=== PATIENT | male | born 1955 | race Caucasian/White ===

== ENCOUNTER 2022-09-10 09:47 | Inpatient (IN) ==
[2022-09-10] MEDS ORDERED: KETOROLAC TROMETHAMINE 15 MG/ML VIAL IV ONE (10:41)
--- NOTE | 2022-09-10 10:41 | Emergency Department Note ---
Impression & Plan Persistent atrial fibrillation, HTN (hypertension), Internal carotid artery dissection, Headache ED Provider Note NAME: DIONICIO DGUGAN AGE: 67 SEX: M : 1955 ARRIVES VIA: Walk-In INFORMANT: Patient ED PROVIDER(S): Donald Fuentes DO CHIEF COMPLAINT: headache HPI: Patient is a 67-year-old male who presents ER for headache. He notes that he gets a headache in the back of his neck which has been coming and going since this past . He denies any weakness or numbness in the arms or legs. Pain is a 1 out of 10. He does have some pain around the right TMJ when the headache occurs. No other jaw or neck pain. No chest pain or shortness of breath. No belly pain, nausea, vomiting or diarrhea. No dysuria, urgency or frequency. No other exacerbating or remitting factors. He has been taking his blood pressure medications. He has been checking his blood pressure at home and it has been elevated and consequently he came in today. PAST MEDICAL HISTORY:See Below PAST SURGICAL HISTORY:See Below FAMILY HISTORY:See Below SOCIAL HISTORY:See Below HOME MEDICATIONS:See Below ALLERGIES:See Below VITALS:See Below PHYSICAL EXAMINATION: GENERAL: Sitting up in bed, alert, well appearing, well nourished, no distress, non-toxic EYE EXAM: normal conjunctiva. PERRL and EOM's intact. OROPHARYNX: no exudate, no erythema, lips, buccal mucosa, and tongue normal and mucous membranes are moist LUNGS: Clear to auscultation. Normal chest wall mechanics HEART: no murmurs, S1 normal and S2 normal ABDOMEN: abdomen soft, non-tender, normo-active bowel sounds, no masses, no rebound or guarding. BACK: Back is symmetrical on inspection and there is no deformity, no midline tenderness, no CVA tenderness. SKIN: no rashes and no bruising UPPER EXTREMITIES: upper extremities are grossly normal. LOWER EXTREMITIES: No pitting edema. NEURO EXAM: Normal sensorium, cranial nerves II-XII intact, normal speech, no weakness of arms, no weakness of legs. No drift. Finger to nose intact. Gross s ensation intact. MEDICAL DECISION MAKING: Patient is a 67-year-old male who presents ER above-stated complaint. IV was established blood work was obtained. He is complaining of headache and neck pain. He does see a chiropractor as an outpatient. IV was established blood work was obtained. Does have a history of A. fib on Eliquis. Labs show no significant leukocytosis or anemia. BMP was unremarkable. T bili slightly up at 1.1. LFTs and lipase was normal. Troponin was negative. CT of the head was initially obtained. After protracted conversation he notes he does follow with a chiropractor and angios of the head and neck were obtained and shows a left in ternal carotid dissection with near occlusion. Following this I discussed with our neurologist who recommended discussing with [facility] neurosurgery. I contacted [facility]. They transferred me to neurology and the images were in their system as I had them transferred after talking with her patrol sergeant sheriff's office. They reviewed the images and I discussed the exam with them. Patient has been taking his Eliquis. They then discussed the case with their interventionalist on-call. Patient per Dr. Pineda is not a candidate for any intervention. They will accept him in transfer as they will monitor him over the next 24 to 48 hours. If nothing changes they will let him go home. They re commended switching him from Eliquis to heparin in case he needs a procedure. They would prefer the pressures to remain from 1 40-1 60s. If he was significantly higher lower this would need to be augmented as he is at risk of stroking out if it goes lower and making dissection worse if he goes much higher. They expect the bed to be ready in about 24 hours. Based on this I discussed the case with Tete from [facility] service. Patient was updated bedside. They are agreeable to transport to [facility]. They discussed with golf instructor and I discussed the case with Dr. Mao from the ICU in the ER. Patient remained stable. Blood pressures did wax and wane between 150s to mid 170s. He has no deficit. I did place him on a heparin drip as previously requested by neurology at [facility]. Triage Nursing notes reviewed. Limited review of prior medical records performed Vital Signs: reviewed and remarkable for no significant abnormalities Differential diagnosis: Differential Diagnosis includes but is not limited to headache, tension headache, cluster headache, migraine, subarachnoid hemorrhage, meningitis, mass, central venous thrombus, concussion, trauma and epidural/subdural hemorrhage. ER treatment provided: See below Diagnostics interpreted by me include EKG and cardiac monitoring as listed below: -Cardiac Monitoring: An order was placed for continuous cardiac monitoring. The monitor shows a rate of 70 with sinus rhythm. -ECG: A. fib rate of 72 Normal axis No PVCs QTC 446 -Laboratory studies:Interpreted by me as stated above in MDM and shown below. Imaging studies: Xrays: As interpreted by me:none CTs show: CTs of the head and neck show a left internal carotid dissection with near complete occlusion at the base of the skull Consultation(s): As described above discussed with Dr. Butts from our neurology service here who recommended discussing with [facility]. Discussed with Dr. Pineda who reviewed the images and discussed with her interventionalists and agreed to accept the patient under Dr. Stout service at [facility]. Expect an days delay for a bed. Discussed with Tete [facility] here who accepted the patient and admission as well as Dr. Mills from our ICU who is consulting on the patient Procedures:none Critical Care: I have personally spent 31 minutes of critical care time in the direct management of this patient. This includes bedside care, interpretation of diagnostic studies, and testing, discussion with consultants, patient, and family members, and other required patient management activities. This 31 minutes is in excess of all separately billable procedures. Past Med/Surg History Medical History HTN (hypertension) Persistent atrial fibrillation Family History Other Diabetes Stroke Social History Smoking Status: Never smoker Hx Alcohol Use: Yes Alcohol type: beer, wine and hard liquor Alcohol type Comment: 2 drinks nightly Hx Substance Use: No Feels Safe at Home: Yes Allergies Allergies Allergy/AdvReac Type Severity Reaction Status Date / Time No Known Allergies Allergy Verified 09/10/22 15:17 Home Meds Home Medications Medication Instructions Recorded Confirmed apixaban 5 mg tablet (Eliquis) 5 mg PO BID 09/10/22 09/10/22 hydrochlorothiazide 12.5 mg capsule 12.5 mg PO QAM 09/10/22 09/10/22 lisinopril 40 mg tablet 40 mg PO QAM 09/10/22 09/10/22 metoprolol succinate 50 mg 50 mg PO QAM 09/10/22 09/10/22 tablet,extended release 24 hr Results & Data (ED) Vital Signs Vital Signs - 24 hr 09/10/22 09:56 09/10/22 10:12 09/10/22 10:12 Temperature 37 C Temperature Source Temporal Artery Scan Pulse Rate 72 Pulse Rate [Apical] Pulse Rate from SpO2 Sensor Respiratory Rate 20 Respiratory Effort / Characteristics Non-Labored Spontaneous Respiratory Depth Normal Respiratory Pattern Regular Blood Pressure 190/135 H Blood Pressure [Right Arm] Blood Pressure Mean 153 Blood Pressure Mean [Right Arm] Pulse Oximetry 99 Oxygen Delivery Method Room Air Room Air Room Air Sepsis Recent Fever Within 48 Hours No Sepsis New/Unexplained Change in Mental Status No Sepsis Action Taken by Nursing No Action Required 09/10/22 10:22 09/10/22 10:30 09/10/22 10:40 Temperature Temperature Source Pulse Rate 68 80 68 Pulse Rate [Apical] Pulse Rate from SpO2 Sensor 68 86 71 Respiratory Rate 24 16 21 Respiratory Effort / Characteristics Respiratory Depth Respiratory Pattern Blood Pressure Blood Pressure [Right Arm] Blood Pressure Mean Blood Pressure Mean [Right Arm] Pulse Oximetry 100 96 96 Oxygen Delivery Method Room Air Room Air Room Air Sepsis Recent Fever Within 48 Hours Sepsis New/Unexplained Change in Mental Status Sepsis Action Taken by Nursing 09/10/22 10:50 09/10/22 11:05 09/10/22 11:10 Temperature Temperature Source Pulse Rate 76 67 69 Pulse Rate [Apical] Pulse Rate from SpO2 Sensor 72 73 Respiratory Rate 18 14 Respiratory Effort / Characteristics Respiratory Depth Respiratory Pattern Blood Pressure Blood Pressure [Right Arm] Blood Pressure Mean Blood Pressure Mean [Right Arm] Pulse Oximetry 98 98 Oxygen Delivery Method Room Air Room Air Room Air Sepsis Recent Fever Within 48 Hours Sepsis New/Unexplained Change in Mental Status Sepsis Action Taken by Nursing 09/10/22 11:19 09/10/22 11:19 09/10/22 11:20 Temperature Temperature Source Pulse Rate 61 70 Pulse Rate [Apical] Pulse Rate from SpO2 Sensor 63 75 Respiratory Rate 18 17 Respiratory Effort / Characteristics Respiratory Depth Respiratory Pattern Blood Pressure 164/103 H Blood Pressure [Right Arm] Blood Pressure Mean 123 Blood Pressure Mean [Right Arm] Pulse Oximetry 95 98 Oxygen Delivery Method Room Air Room Air Room Air Sepsis Recent Fever Within 48 Hours Sepsis New/Unexplained Change in Mental Status Sepsis Action Taken by Nursing 09/10/22 11:30 09/10/22 11:40 09/10/22 11:50 Temperature Temperature Source Pulse Rate 74 68 65 Pulse Rate [Apical] Pulse Rate from SpO2 Sensor 66 74 Respiratory Rate 15 17 17 Respiratory Effort / Characteristics Respiratory Depth Respiratory Pattern Blood Pressure Blood Pressure [Right Arm] Blood Pressure Mean Blood Pressure Mean [Right Arm] Pulse Oximetry 98 97 Oxygen Delivery Method Room Air Room Air Room Air Sepsis Recent Fever Within 48 Hours Sepsis New/Unexplained Change in Mental Status Sepsis Action Taken by Nursing 09/10/22 12:00 09/10/22 12:00 09/10/22 12:10 Temperature Temperature Source Pulse Rate 68 69 Pulse Rate [Apical] Pulse Rate from SpO2 Sensor 69 66 Respiratory Rate 14 21 Respiratory Effort / Characteristics Respiratory Depth Respiratory Pattern Blood Pressure 175/122 H Blood Pressure [Right Arm] Blood Pressure Mean 139 Blood Pressure Mean [Right Arm] Pulse Oximetry 98 97 Oxygen Delivery Method Room Air Room Air Room Air Sepsis Recent Fever Within 48 Hours Sepsis New/Unexplained Change in Mental Status Sepsis Action Taken by Nursing 09/10/22 12:30 09/10/22 12:30 09/10/22 12:40 Temperature Temperature Source Pulse Rate 65 69 Pulse Rate [Apical] Pulse Rate from SpO2 Sensor 64 70 Respiratory Rate 20 21 Respiratory Effort / Characteristics Respiratory Depth Respiratory Pattern Blood Pressure 175/122 H Blood Pressure [Right Arm] Blood Pressure Mean 139 Blood Pressure Mean [Right Arm] Pulse Oximetry 98 97 Oxygen Delivery Method Room Air Room Air Room Air Sepsis Recent Fever Within 48 Hours Sepsis New/Unexplained Change in Mental Status Sepsis Action Taken by Nursing 09/10/22 12:50 09/10/22 13:00 09/10/22 13:00 Temperature Temperature Source Pulse Rate 69 66 Pulse Rate [Apical] Pulse Rate from SpO2 Sensor 71 65 Respiratory Rate 15 Respiratory Effort / Characteristics Respiratory Depth Respiratory Pattern Blood Pressure 167/102 H Blood Pressure [Right Arm] Blood Pressure Mean 123 Blood Pressure Mean [Right Arm] Pulse Oximetry 98 99 Oxygen Delivery Method Room Air Room Air Room Air Sepsis Recent Fever Within 48 Hours Sepsis New/Unexplained Change in Mental Status Sepsis Action Taken by Nursing 09/10/22 13:10 09/10/22 13:20 09/10/22 13:30 Temperature Temperature Source Pulse Rate 71 Pulse Rate [Apical] Pulse Rate from SpO2 Sensor 70 68 Respiratory Rate 16 13 Respiratory Effort / Characteristics Respiratory Depth Respiratory Pattern Blood Pressure 187/108 H Blood Pressure [Right Arm] Blood Pressure Mean 134 Blood Pressure Mean [Right Arm] Pulse Oximetry 94 95 Oxygen Delivery Method Room Air Room Air Room Air Sepsis Recent Fever Within 48 Hours Sepsis New/Unexplained Change in Mental Status Sepsis Action Taken by Nursing 09/10/22 13:30 09/10/22 15:23 Temperature Temperature Source Pulse Rate 64 Pulse Rate [Apical] 72 Pulse Rate from SpO2 Sensor 66 Respiratory Rate 15 21 Respiratory Effort / Characteristics Respiratory Depth Respiratory Pattern Blood Pressure Blood Pressure [Right Arm] 183/116 H Blood Pressure Mean Blood Pressure Mean [Right Arm] 138 Pulse Oximetry 99 94 Oxygen Delivery Method Room Air Sepsis Recent Fever Within 48 Hours Sepsis New/Unexplained Change in Mental Status Sepsis Action Taken by Nursing Laboratory Data 09/10/22 10:23 09/10/22 10: Lab Results 09/10/22 09/10/22 09/10/22 Range/Units 10: 10: 11:28 WBC 6.78 (4.8-10.8) K/ul RBC 5.23 (4.70-6.10) M/uL Hgb 17.6 (14.0-18.0) g/dl Hct 48.9 (42.0-52.0) % MCV 93.5 (80.0-100.0) fL MCH 33.7 (25.0-34.0) pg MCHC 36.0 (32.0-36.0) g/dL RDW Std Deviation 37.5 (36.4-46.3) fL RDW Coeff of Ino 10.9 L (11.5-14.5) % Plt Count 232 (130-400) K/uL MPV 10.6 (9.4-12.4) fL Immature Gran % (Auto) 0.1 % Neut % (Auto) 71.8 % Lymph % (Auto) 17.3 % Baca % (Auto) 7.1 % Eos % (Auto) 2.7 % Baso % (Auto) 1.0 % Neut # (Auto) 4.87 (1.40-6.50) K/uL Lymph # (Auto) 1.17 L (1.2-3.4) K/uL Baca # (Auto) 0.48 (0.11-0.59) K/uL Eos # (Auto) 0.18 (0-0.50) K/uL Baso # (Auto) 0.07 (0-0.2) K/uL Immature Gran # (Auto) 0.01 (0.01-0.20) K/uL Sodium 137 (136-145) mmol/L Potassium TNP 4.0 Chloride 102 (98-107) mmol/L Carbon Dioxide 29 (21-32) mmol/L Anion Gap 6 (3-11) BUN 14 (6-23) mg/dl Creatinine 0.96 (0.6-1.4) mg/dl Est Cr Clr Drug Dosing 79.5 ml/min Est GFR ( Amer) 94.4 ml/min Est GFR (Non-Af Amer) 81.5 ml/min BUN/Creatinine Ratio 14.6 (10-20) Glucose 97 (70-99(Fasting)) mg/dl Calcium 10.3 H (8.5-10.1) mg/dl Total Bilirubin 1.1 H (0.2-1.0) mg/dl AST TNP 16 ALT 22 (7-52) U/L Alkaline Phosphatase 72 (34-104) U/L Troponin I High Sens 4.8 (0-20) pg/ml Total Protein 7.7 (6.0-8.3) gm/dl Albumin 4.7 (3.4-5.0) gm/dl Globulin 3.0 (2.5-4.0) gm/dl Albumin/Globulin Ratio 1.6 (0.9-2) Lipase 16 (11-82) U/L SARS-CoV-2, RNA, NAAT (NEGATIVE) 09/10/22 Range/Units 16:05 WBC (4.8-10.8) K/ul RBC (4.70-6.10) M/uL Hgb (14.0-18.0) g/dl Hct (42.0-52.0) % MCV (80.0-100.0) fL MCH (25.0-34.0) pg MCHC (32.0-36.0) g/dL RDW Std Deviation (36.4-46.3) fL RDW Coeff of Ino (11.5-14.5) % Plt Count (130-400) K/uL MPV (9.4-12.4) fL Immature Gran % (Auto) % Neut % (Auto) % Lymph % (Auto) % Baca % (Auto) % Eos % (Auto) % Baso % (Auto) % Neut # (Auto) (1.40-6.50) K/uL Lymph # (Auto) (1.2-3.4) K/uL Baca # (Auto) (0.11-0.59) K/uL Eos # (Auto) (0-0.50) K/uL Baso # (Auto) (0-0.2) K/uL Immature Gran # (Auto) (0.01-0.20) K/uL Sodium (136-145) mmol/L Potassium Chloride (98-107) mmol/L Carbon Dioxide (21-32) mmol/L Anion Gap (3-11) BUN (6-23) mg/dl Creatinine (0.6-1.4) mg/dl Est Cr Clr Drug Dosing ml/min Est GFR ( Amer) ml/min Est GFR (Non-Af Amer) ml/min BUN/Creatinine Ratio (10-20) Glucose (70-99(Fasting)) mg/dl Calcium (8.5-10.1) mg/dl Total Bilirubin (0.2-1.0) mg/dl AST ALT (7-52) U/L Alkaline Phosphatase (34-104) U/L Troponin I High Sens (0-20) pg/ml Total Protein (6.0-8.3) gm/dl Albumin (3.4-5.0) gm/dl Globulin (2.5-4.0) gm/dl Albumin/Globulin Ratio (0.9-2) Lipase (11-82) U/L SARS-CoV-2, RNA, NAAT NEGATIVE (NEGATIVE) Administered Medications Discontinued Medications Amlodipine Besylate (Amlodipine Besylate 5 Mg Tab) 5 mg PO NOW ONE Stop: 09/10/22 15:31 Last Admin: 09/10/22 15:32 Dose: 5 mg Documented By: REBEKAH Ioversol (Optiray 320 500ml) 120 ml IV ONCE ONE Stop: 09/10/22 12:23 Last Admin: 09/10/22 12:22 Dose: 120 ml Documented By: KHAI(2) Ketorolac Tromethamine (Ketorolac Tromethamine 15 Mg/Ml Vial) 10 mg IV NOW ONE Stop: 09/10/22 10:42 Last Admin: 09/10/22 11:15 Dose: 10 mg Documented By: SULEMAN Labetalol HCl (Labetalol Hcl Iv 5 Mg/Ml 20ml) 2.5 mg IV NOW STA Stop: 09/10/22 15:22 Last Admin: 09/10/22 15:33 Dose: 2.5 mg Documented By: REBEKAH Co-signed By: [facility] Imaging Data Radiologist's Impression: Chest X-Ray 09/10/22 10:25 XR chest 1V portable CLINICAL HISTORY: Chest pain, nonspecific COMPARISON STUDY: No previous studies for comparison. FINDINGS: Lung volumes are normal. Lungs are clear. There is no pneumothorax or pleural effusion. Cardiac size is normal. Mediastinal contours are normal. There is no evidence for pulmonary edema. IMPRESSION: No acute cardiopulmonary findings. ACT 112: Negative or not required by law. Electronically signed by: Jovon Kennedy M.D. 09/10/2022 10:[address] 09/10/22 10:37 CT OF THE HEAD WITHOUT CONTRAST CLINICAL HISTORY: Headache. COMPARISON STUDY: No previous studies for comparison. CT DOSE: 614.27 mGy.cm TECHNIQUE: Helical axial images of the head were obtained without IV contrast. Automated exposure control was utilized for the study. A dose lowering technique was utilized adhering to the principles of ALARA. FINDINGS: No acute intracranial hemorrhage, midline shift or mass effect is present. White matter hypodensity suggests small vessel disease. The ventricular system is unremarkable. The basal cisterns are patent. No extra-axial collections are present. There are no findings to suggest acute dural sinus thrombosis or acute territorial infarct. No significant calvarial abnormalities are present. Visualized portions of the right maxillary sinus are diminutive. IMPRESSION: No acute intracranial findings. ACT 112: Negative or not required by law. Electronically signed by: Jovon Kennedy M.D. 09/10/2022 11:06 AM Head CTA 09/10/22 11:50 CTA ANGIOGRAPHY OF THE HEAD CLINICAL HISTORY: Headache. COMPARISON STUDY: Head CT performed earlier today. TECHNIQUE: Helical axial images of the head were obtained following uneventful intravenous administration of 120 cc of Optiray. Sagittal and coronal reconstructions were viewed as well as maximal intensity projections on an independent 3-D workstation. Automated exposure control was utilized for the study. A dose lowering technique was utilized adhering to the principles of ALA RA. FINDINGS: A dissection of the cervical portion of the left internal carotid artery is better depicted on the CTA of the neck which will be reported separately. There is severe stenosis with near occlusion of the petrous portion of the left internal carotid artery. The left M1, M2, A1 and A2 segments are patent. 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 There are no additional intracranial aneurysms. The left vertebral artery is dominant. Right vertebral artery is diminutive. There is persistence of the left posterior cerebral artery. No central vessel occlusion within the intracranial vessels is noted. Major dural sinuses are patent. Ventricular system is unremarkable. Basal cisterns are patent. IMPRESSION: 1. 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 This dissection also likely results in slight asymmetric delayed flow within the intracranial left ICA. However, the intracranial vessels are patent. This dissection is better depicted on the CTA of the neck which will be reported separately. 2. No central vessel occlusion within the intracranial vessels. 3. 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 This is of doubtful significance. No additional intracranial aneurysms. ACT 112: Negative or not required by law. Electronically signed by: Jovon Kennedy M.D. 09/10/2022 12:51 PM Neck CTA 09/10/22 11:50 CT ANGIOGRAM OF THE NECK CLINICAL HISTORY: Headache. COMPARISON STUDY: No priors. TECHNIQUE: Following the IV administration of 120 of Optiray 320, CT angiogram of the neck was performed from the aortic arch to the skull base. Images are reviewed in the axial, sagittal, and coronal planes. 3-D MIPS images are created and assessed. IV contrast was administered without complication. All measurements were calculated based on NASCET criteria. A dose lowering technique was utilized adhering to the principles of ALARA. CT DOSE: 669.70 mGy.cm FINDINGS: Thoracic aorta: There is moderate atherosclerotic calcification of the thoracic aorta. Visualized portions of the thoracic aorta are normal in caliber. The aortic arch demonstrates standard 3-vessel anatomy. Right carotid arterial system: The right common carotid artery is widely patent, as are the right internal and external carotid arteries. Minimal calcified plaque is noted in the carotid bulb. Left carotid arterial system: The left common carotid artery is widely patent, as is the left external carotid artery. 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 This originates approximately 4 cm above the bifurcation best seen on axial image #364 and extends to the skull base. There is high-grade stenosis with near complete focal occlusion of petrous portion of the left internal carotid artery seen on axial image #14. The remainder of the left internal carotid artery at the skull base is patent. Vertebral arteries: The vertebral arteries are widely patent bilaterally noting left-sided dominance. The right vertebral artery is diminutive. Subclavian arteries: Widely patent bilaterally. Intracranial vasculature: Jugular veins: Widely patent bilaterally. Brain parenchyma: The visualized brain parenchyma the skull base is within normal limits. Lung apices: Partially visualized upper lobe lung parenchyma appears clear. Soft tissues: The visualized pharyngeal soft tissues are normal in appearance noting angiographic phase technique. The oropharyngeal airway appears widely patent. The salivary and thyroid glands are normal in appearance. No cervical lymphadenopathy is seen. Skeletal structures: The visualized calvarium at the skull base appears intact. The imaged cervical spine is maintains noting mild spondylosis. Sinuses and mastoids: There is moderate mucosal thickening within the diminutive right maxillary antrum. The remaining visualized paranasal sinuses are clear. The mastoid air cells are well pneumatized. IMPRESSION: 1. 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 2. There is high-grade stenosis with near complete focal occlusion within the petrous portion of the left internal carotid artery. 3. The right carotid system and the vertebral arteries are widely patent bilaterally. ACT 112: Negative or not required by law. Electronically signed by: Will Fry M.D. 09/10/2022 12:38 PM Discharge Plan Visit Data Chief Complaint: Hypertension Stated Complaint: ELEVATED BLOOD PRESSURE, JAW PAIN, HEADACHE ED Provider: Donald Fuentes Discharge Problem: Persistent atrial fibrillation, HTN (hypertension), Internal carotid artery dissection, Headache Forms Stand Alone Forms: My [facility] Validroid Prescriptions Prescriptions: No Action metoprolol succinate 50 mg tablet extended release 24 hr 50 mg PO QAM hydrochlorothiazide 12.5 mg capsule 12.5 mg PO QAM lisinopril 40 mg tablet 40 mg PO QAM Eliquis 5 mg tablet 5 mg PO BID Referrals Referrals: PCP,NO [Physician] -
[2022-09-10 10:46] LABS: Basophils # (auto) 0.07 K/uL (0-0.2); Eosinophils # (auto) 0.18 K/uL (0-0.50); Eosinophils % (auto) 2.7 %; Hematocrit (blood only) 48.9 % (42.0-52.0); Hemoglobin 17.6 g/dl (14.0-18.0); Immature Granulocytes # (auto) 0.01 K/uL (0.01-0.20); Immature Granulocytes % (auto) 0.1 %; Lymphocytes # (auto) 1.17 K/uL (1.2-3.4); Lymphocytes % (auto) 17.3 %; Mean Corpuscular Hemoglobin 33.7 pg (25.0-34.0); Mean Corpuscular Volume 93.5 fL (80.0-100.0); Mean Platelet Volume 10.6 fL (9.4-12.4); Monocytes # (auto) 0.48 K/uL (0.11-0.59); Monocytes % (auto) 7.1 %; Neutrophils # (auto) 4.87 K/uL (1.40-6.50); Neutrophils % (auto) 71.8 %; Platelet Count 232 K/uL (130-400); RDW Coefficient of Variation 10.9 % (11.5-14.5); RDW Standard Deviation 37.5 fL (36.4-46.3); Red Blood Count 5.23 M/uL (4.70-6.10); White Blood Count 6.78 K/ul (4.8-10.8)
--- NOTE | 2022-09-10 10:51 | XRay Report ---
XR chest 1V portable CLINICAL HISTORY: Chest pain, nonspecific COMPARISON STUDY: No previous studies for comparison. FINDINGS: Lung volumes are normal. Lungs are clear. There is no pneumothorax or pleural effusion. Car diac size is normal. Mediastinal contours are normal. There is no evidence for pulmonary edema. IMPRESSION: No acute cardiopulmonary findings. ACT 112: Negative or not required by law. Electronically signed by: Jovon Kennedy M.D. 09/10/2022 10:50 AM
--- NOTE | 2022-09-10 11:08 | CT Scan Report ---
CT OF THE HEAD WITHOUT CONTRAST CLINICAL HISTORY: Headache. COMPARISON STUDY: No previous studies for comparison. CT DOSE: 614.27 mGy.cm TECHNIQUE: Helical axial images of the head were obtained without IV contrast. Automated exposure con trol was utilized for the study. A dose lowering technique was utilized adhering to the principles o f ALARA. FINDINGS: No acute intracranial hemorrhage, midline shift or mass effect is present. White matter hyp odensity suggests small vessel disease. The ventricular system is unremarkable. The basal cisterns ar e patent. No extra-axial collections are present. There are no findings to suggest acute dural sinus thrombosis or acute territorial infarct. No significant calvarial abnormalities are present. Visualiz ed portions of the right maxillary sinus are diminutive. IMPRESSION: No acute intracranial findings. ACT 112: Negative or not required by law. Electronically signed by: Jovon Kennedy M.D. 09/10/2022 11:06 AM
[2022-09-10 11:21] LABS: Alanine Aminotransferase 22 U/L (7-52); Albumin Globulin Ratio 1.6 (0.9-2); Albumin Level 4.7 gm/dl (3.4-5.0); Alkaline Phosphatase 72 U/L (34-104); Anion Gap 6 (3-11); BUN Creatinine Ratio 14.6 (10-20); Bilirubin,Total 1.1 mg/dl (0.2-1.0); Blood Urea Nitrogen 14 mg/dl (6-23); Calcium 10.3 mg/dl (8.5-10.1); Carbon Dioxide 29 mmol/L (21-32); Chloride 102 mmol/L (98-107); Creatinine Clr Calc Pharmacy 79.5 ml/min; Est GFR (African American) 94.4 ml/min; Est GFR (Non-African American) 81.5 ml/min; Glucose 97 mg/dl (70-99(Fasting)); Lipase 16 U/L (11-82); Sodium 137 mmol/L (136-145); Total Protein 7.7 gm/dl (6.0-8.3); Troponin I High Sensitivity 4.8 pg/ml (0-20)
[2022-09-10] MEDS ORDERED: OPTIRAY 320 500ml IV ONE (12:22)
--- NOTE | 2022-09-10 12:39 | CT Scan Report ---
CT ANGIOGRAM OF THE NECK CLINICAL HISTORY: Headache. COMPARISON STUDY: No priors. TECHNIQUE: Following the IV administration of 120 of Optiray 320, CT angiogram of the neck was perfor med from the aortic arch to the skull base. Images are reviewed in the axial, sagittal, and coronal p lanes. 3-D MIPS images are created and assessed. IV contrast was administered without complication. A ll measurements were calculated based on NASCET criteria. A dose lowering technique was utilized adh ering to the principles of ALARA. CT DOSE: 669.70 mGy.cm FINDINGS: Thoracic aorta: There is moderate atherosclerotic calcification of the thoracic aorta. Visualized por tions of the thoracic aorta are normal in caliber. The aortic arch demonstrates standard 3-vessel ricco vee. Right carotid arterial system: The right common carotid artery is widely patent, as are the right int ernal and external carotid arteries. Minimal calcified plaque is noted in the carotid bulb. Left carotid arterial system: The left common carotid artery is widely patent, as is the left externa l carotid artery. 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 This origin ates approximately 4 cm above the bifurcation best seen on axial image #364 and extends to the skull base. There is high-grade stenosis with near complete focal occlusion of petrous portion of the left internal carotid artery seen on axial image #14. The remainder of the left internal carotid artery at the skull base is patent. Vertebral arteries: The vertebral arteries are widely patent bilaterally noting left-sided dominance. The right vertebral artery is diminutive. Subclavian arteries: Widely patent bilaterally. Intracranial vasculature: Jugular veins: Widely patent bilaterally. Brain parenchyma: The visualized brain parenchyma the skull base is within normal limits. Lung apices: Partially visualized upper lobe lung parenchyma appears clear. Soft tissues: The visualized pharyngeal soft tissues are normal in appearance noting angiographic pha se technique. The oropharyngeal airway appears widely patent. The salivary and thyroid glands are nor mal in appearance. No cervical lymphadenopathy is seen. Skeletal structures: The visualized calvarium at the skull base appears intact. The imaged cervical s pine is maintains noting mild spondylosis. Sinuses and mastoids: There is moderate mucosal thickening within the diminutive right maxillary antr um. The remaining visualized paranasal sinuses are clear. The mastoid air cells are well pneumatized. IMPRESSION: 1. 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 2. There is high-grade stenosis with near complete focal occlusion within the petrous portion of the left internal carotid artery. 3. The right carotid system and the vertebral arteries are widely patent bilaterally. ACT 112: Negative or not required by law. Electronically signed by: Will Fry M.D. 09/10/2022 12:38 PM
--- NOTE | 2022-09-10 12:52 | CT Scan Report ---
CTA ANGIOGRAPHY OF THE HEAD CLINICAL HISTORY: Headache. COMPARISON STUDY: Head CT performed earlier today. TECHNIQUE: Helical axial images of the head were obtained following uneventful intravenous administr ation of 120 cc of Optiray. Sagittal and coronal reconstructions were viewed as well as maximal inten sity projections on an independent 3-D workstation. Automated exposure control was utilized for the study. A dose lowering technique was utilized adhering to the principles of ALARA. FINDINGS: A dissection of the cervical portion of the left internal carotid artery is better depicted on the CTA of the neck which will be reported separately. There is severe stenosis with near occlusi on of the petrous portion of the left internal carotid artery. The left M1, M2, A1 and A2 segments ar e patent. 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 There are no additional intracranial aneurysms. The left vertebral artery is dominant. Right vertebral artery is diminutive. There is persistence of the left posterior cerebral artery. No central vessel oc clusion within the intracranial vessels is noted. Major dural sinuses are patent. Ventricular system is unremarkable. Basal cisterns are patent. IMPRESSION: 1. 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 This dissection also likely results in slight asymmetric delayed flow within the intracranial left ICA. However, the intracranial vessel s are patent. This dissection is better depicted on the CTA of the neck which will be reported separa tely. 2. No central vessel occlusion within the intracranial vessels. 3. 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 This is of doubtful significance. No additional intr acranial aneurysms. ACT 112: Negative or not required by law. Electronically signed by: Jovon Kennedy M.D. 09/10/2022 12:51 PM
[2022-09-10] MEDS ORDERED: Heparin IV Adult Wt-Based Low-Dose *NO* Bolus Protocol IV ONE (14:11)
[2022-09-10] MEDS ORDERED: HEPARIN SODIUM/DEXTROSE 25,000 UNITS/500 ML BAG IV SCH (14:15)
[2022-09-10] MEDS ORDERED: LABETALOL HCL IV 5 MG/ML 20ML IV STA (15:21)
[2022-09-10] MEDS ORDERED: amLODIPine BESYLATE 5 MG TAB PO ONE (15:30)
--- NOTE | 2022-09-10 15:34 | Electrocardiogram Report ---
Test Reason : Blood Pressure : / mmHG Vent. Rate : 072 BPM Atrial Rate : 089 BPM P-R Int : 000 ms QRS Dur : 072 ms QT Int : 408 ms P-R-T Axes : 000 042 034 degrees QTc Int : 446 ms Atrial fibrillation Septal infarct , age undetermined Abnormal ECG No previous ECGs available Confirmed by Guy Nj ([id number]) on 09/10/2022 3:34:11 PM Referred By: Confirmed By:Guy Nj
[2022-09-10] MEDS ORDERED: LABETALOL HCL IV 5 MG/ML 20ML IV PRN (15:39)
--- NOTE | 2022-09-10 15:55 | History & Physical Report ---
Date of Service September 10, 2022 Assessment & Plan (1) Internal carotid artery dissection: (2) Headache: Plan: This is a 67-year-old male with PMH of persistent atrial fibrillation on Eliquis, hypertension and other medical problems listed below who presents with persistent headache x 4 days and elevated BP at home and was found to have a L internal carotid artery dissection. Posterior headache, left sided jaw pain x 4 days with associated elevated BP (SBP ~ 170), directed to come to ED H/o chiropractoradjustments, last 3 weeks prior Head/neck CTA shows dissection of the cervical left internal carotid artery which results in severe stenosis/near occlusion of the petrous portion of the left internal carotid artery ED physician discussed with [facility] neurology - patient is accepted for transfer to [facility] by Dr. Shankar once bed available (estimated <24hrs) Recommendations per [facility] neuro and neurosurgery 1. Maintain BPs between 140-160 and attempt to prevent further dissection extension and or decreased perfusion - discussed w/Dr. Mao - will add Norvasc 5mg and PRN 2.5 IV Labetalol Q15min 2. Ok to start hep gtt without bolus and hold Eliquis in case intervention is needed 3.Transfer to [facility] neurology for further evaluation and management (MRI head, DSA, etc.) (3) Persistent atrial fibrillation: Plan: Holding Eliquis, started on IV heparin in case intervention needed (4) HTN (hypertension): Plan: Home regimen includes hctz 12.5 daily, lisinopril 40mg daily, Toprol 50mg daily See above DVT Ppx: IV heparin Code status: FULL CODE PCP: Key[facility] Dispo: Accepted for transfer to [facility] neurogy service - bed to be available in next 24 hrs. Patient seen in collaboration with Dr. Ruff. Please see addendum. A total of 75 minutes were spent with greater than 50% of that time face to face with the patient, personally reviewing all current laboratories, imaging studies, past medication reconciliation, outpatient chart review, and discussion with specialists to collaborate care for the patient with attending and utilization of translation services. Please see attending documentation for corrections and/or additions. History of Present Illness Chief Complaint: Headache Primary Care Provider: Mathieu Baer DO This is a 67-year-old male with PMH of persistent atrial fibrillation on Eliquis, hypertension and other medical problems listed below who presents with persistent headache x 4 days. Does not typically get headaches like this and states that pain is most present in left back of head with aching pain radiating into left jaw. Denies any lightheadedness, issues with speech or swallowing or numbness to head neck or upper extremities. Took Tylenol at home which relieved pain somewhat for a time, but is always more painful at night. BP has been elevated the past few days at home, reporting a BP of 171/123 and called into cardiology office and was directed to come to ED for further evaluation. Takes blood pressure medication for history of hypertension, which she took all of this morning. Is also on Eliquis for history of atrial fibrillation. Denies personal stroke history. Is a non-smoker. Headache pain is a 1/10 while lying in the ER room. Does routinely follow with a chiropractor and have neck adjustments but states he has not had 1 for 3 weeks. Denies any fever, chills, lightheadedness, chest pain, palpitations, shortness of breath, nausea, vomiting, abdominal pain, dysuria, diarrhea or constipation. Allergies Allergy/AdvReac Type Severity Reaction Status Date / Time No Known Allergies Allergy Verified 09/10/22 15:17 Home Medications Medication Instructions Recorded Confirmed Type apixaban 5 mg tablet (Eliquis) 5 mg PO BID 09/10/22 09/10/22 History hydrochlorothiazide 12.5 mg capsule 12.5 mg PO QAM 09/10/22 09/10/22 History lisinopril 40 mg tablet 40 mg PO QAM 09/10/22 09/10/22 History metoprolol succinate 50 mg 50 mg PO QAM 09/10/22 09/10/22 History tablet,extended release 24 hr Past Med/Surg History Medical History HTN (hypertension) Persistent atrial fibrillation Family History Other Diabetes Stroke Social History Smoking Status: Never smoker Hx Alcohol Use: No Hx Substance Use: No Preferred Language: Sinhala Communication Ability: Effective Drafter Electrical Required: No Beliefs That Will Affect Care: None Current Living Situation: Spouse Other Information That Helps Us Care for You: No Feels Safe at Home: Yes Safety Concerns: Feels Safe At This Time Assistive Devices: Glasses Review of Systems Review of Systems: At least ten systems reviewed and negative except as noted in the HPI. Physical Exam Physical Exam: General Appearance: WD/WN, vitals as above, NAD, sitting up in bed, pleasant, conversing easily Head: normocephalic, atraumatic Eyes: normal inspection, PERRL, conjunctivae normal, anicteric sclerae ENT: external ear and nose normal, oropharynx normal, TTP left jaw Neck: normal visual inspection, trachea midline, no thyromegaly Respiratory: normal respiratory effort, lungs clear to auscultation, no wheeze, rales, rhonchi. No accessory muscle use Cardiovascular: regular rate, rhythm, no murmur, normal peripheral pulses, no BLE edema. Vessels: no JVD Chest: normal inspection of chest Abdomen/GI: normal bowel sounds, soft, nontender, no hepatosplenomegaly Extremities/Musculoskeletal: no cyanosis or clubbing, extremities motor strength 5/5 Neurologic: PERRL, EOMI, accommodation nl, no face palsy, no dysarthria, CN's II-XI intact bilaterally and AROM and 5/5 MARY Psychiatric: A+Ox3, euthymic affect Skin: no rashes, normal color, warm/dry Results & Data Results & Data ([facility]) Vital Signs (Past 12 Hours) Vital Signs Temp Pulse Pulse Resp BP BP Pulse Ox 09/10/22 15:23 72 21 183/116 H 94 09/10/22 13:30 64 15 99 09/10/22 13:30 187/108 H 09/10/22 13:20 13 95 09/10/22 13:10 71 16 94 09/10/22 13:00 66 99 09/10/22 13:00 167/102 H 09/10/22 12:50 69 15 98 09/10/22 12:40 69 21 97 09/10/22 12:30 65 20 98 09/10/22 12:30 175/122 H 09/10/22 12:10 69 21 97 09/10/22 12:00 68 14 98 09/10/22 12:00 175/122 H 09/10/22 11:50 65 17 97 09/10/22 11:40 68 17 98 09/10/22 11:30 74 15 09/10/22 11:20 70 17 98 09/10/22 11:19 61 18 95 09/10/22 11:19 164/103 H 09/10/22 11:10 69 14 98 09/10/22 11:05 67 09/10/22 10:50 76 18 98 09/10/22 10:40 68 21 96 09/10/22 10:30 80 16 96 09/10/22 10:22 68 24 100 09/10/22 10:12 09/10/22 10:12 09/10/22 09:56 37 C 72 20 190/135 H 99 O2 Del Method 09/10/22 15:23 09/10/22 13:30 Room Air 09/10/22 13:30 Room Air 09/10/22 13:20 Room Air 09/10/22 13:10 Room Air 09/10/22 13:00 Room Air 09/10/22 13:00 Room Air 09/10/22 12:50 Room Air 09/10/22 12:40 Room Air 09/10/22 12:30 Room Air 09/10/22 12:30 Room Air 09/10/22 12:10 Room Air 09/10/22 12:00 Room Air 09/10/22 12:00 Room Air 09/10/22 11:50 Room Air 09/10/22 11:40 Room Air 09/10/22 11:30 Room Air 09/10/22 11:20 Room Air 09/10/22 11:19 Room Air 09/10/22 11:19 Room Air 09/10/22 11:10 Room Air 09/10/22 11:05 Room Air 09/10/22 10:50 Room Air 09/10/22 10:40 Room Air 09/10/22 10:30 Room Air 09/10/22 10:22 Room Air 09/10/22 10:12 Room Air 09/10/22 10:12 Room Air 09/10/22 09:56 Room Air Laboratory Results Short CBC 09/10/22 Range/Units 10:23 WBC 6.78 (4.8-10.8) K/ul Hgb 17.6 (14.0-18.0) g/dl Hct 48.9 (42.0-52.0) % Plt Count 232 (130-400) K/uL BMP 09/10/22 09/10/22 10:23 11:28 Sodium 137 Potassium TNP 4.0 Chloride 102 Carbon Dioxide 29 BUN 14 Creatinine 0.96 Glucose 97 Calcium 10.3 H Liver Function 09/10/22 09/10/22 Range/Units 10:23 11:28 Total Bilirubin 1.1 H (0.2-1.0) mg/dl AST TNP 16 ALT 22 (7-52) U/L Alkaline Phosphatase 72 (34-104) U/L Albumin 4.7 (3.4-5.0) gm/dl Diagnostic Findings Chest X-Ray 09/10/22 10:25 XR chest 1V portable CLINICAL HISTORY: Chest pain, nonspecific COMPARISON STUDY: No previous studies for comparison. FINDINGS: Lung volumes are normal. Lungs are clear. There is no pneumothorax or pleural effusion. Cardiac size is normal. Mediastinal contours are normal. There is no evidence for pulmonary edema. IMPRESSION: No acute cardiopulmonary findings. ACT 112: Negative or not required by law. Electronically signed by: Jovon Kennedy M.D. 09/10/2022 10:[address] 09/10/22 10:37 CT OF THE HEAD WITHOUT CONTRAST CLINICAL HISTORY: Headache. COMPARISON STUDY: No previous studies for comparison. CT DOSE: 614.27 mGy.cm TECHNIQUE: Helical axial images of the head were obtained without IV contrast. Automated exposure control was utilized for the study. A dose lowering technique was utilized adhering to the principles of ALARA. FINDINGS: No acute intracranial hemorrhage, midline shift or mass effect is present. White matter hypodensity suggests small vessel disease. The ventricular system is unremarkable. The basal cisterns are patent. No extra-axial collections are present. There are no findings to suggest acute dural sinus thrombosis or acute territorial infarct. No significant calvarial abnormalities are present. Visualized portions of the right maxillary sinus are diminutive. IMPRESSION: No acute intracranial findings. ACT 112: Negative or not required by law. Electronically signed by: Jovon Kennedy M.D. 09/10/2022 11:06 AM Head CTA 09/10/22 11:50 CTA ANGIOGRAPHY OF THE HEAD CLINICAL HISTORY: Headache. COMPARISON STUDY: Head CT performed earlier today. TECHNIQUE: Helical axial images of the head were obtained following uneventful intravenous administration of 120 cc of Optiray. Sagittal and coronal reconstructions were viewed as well as maximal intensity projections on an independent 3-D workstation. Automated exposure control was utilized for the study. A dose lowering technique was utilized adhering to the principles of ALARA. FINDINGS: A dissection of the cervical portion of the left internal carotid artery is better depicted on the CTA of the neck which will be reported separately. There is severe stenosis with near occlusion of the petrous portion of the left internal carotid artery. The left M1, M2, A1 and A2 segments are patent. 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 There are no additional intracranial aneurysms. The left vertebral artery is dominant. Right vertebral artery is diminutive. There is persistence of the left posterior cerebral artery. No central vessel occlusion within the intracranial vessels is noted. Major dural sinuses are patent. Ventricular system is unremarkable. Basal cisterns are patent. IMPRESSION: 1. 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 This dissection also likely results in slight asymmetric delayed flow within the intracranial left ICA. However, the intracranial vessels are patent. This dissection is better depicted on the CTA of the neck which will be reported separately. 2. No central vessel occlusion within the intracranial vessels. 3. 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 This is of doubtful significance. No additional intracranial aneurysms. ACT 112: Negative or not required by law. Electronically signed by: Jovon Kennedy M.D. 09/10/2022 12:51 PM Neck CTA 09/10/22 11:50 CT ANGIOGRAM OF THE NECK CLINICAL HISTORY: Headache. COMPARISON STUDY: No priors. TECHNIQUE: Following the IV administration of 120 of Optiray 320, CT angiogram of the neck was performed from the aortic arch to the skull base. Images are reviewed in the axial, sagittal, and coronal planes. 3-D MIPS images are created and assessed. IV contrast was administered without complication. All measurements were calculated based on NASCET criteria. A dose lowering technique was utilized adhering to the principles of ALARA. CT DOSE: 669.70 mGy.cm FINDINGS: Thoracic aorta: There is moderate atherosclerotic calcification of the thoracic aorta. Visualized portions of the thoracic aorta are normal in caliber. The aortic arch demonstrates standard 3-vessel anatomy. Right carotid arterial system: The right common carotid artery is widely patent, as are the right internal and external carotid arteries. Minimal calcified plaque is noted in the carotid bulb. Left carotid arterial system: The left common carotid artery is widely patent, as is the left external carotid artery. 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 This originates approximately 4 cm above the bifurcation best seen on axial image #364 and extends to the skull base. There is high-grade stenosis with near complete focal occlusion of petrous portion of the left internal carotid artery seen on axial image #14. The remainder of the left internal carotid artery at the skull base is patent. Vertebral arteries: The vertebral arteries are widely patent bilaterally noting left-sided dominance. The right vertebral artery is diminutive. Subclavian arteries: Widely patent bilaterally. Intracranial vasculature: Jugular veins: Widely patent bilaterally. Brain parenchyma: The visualized brain parenchyma the skull base is within normal limits. Lung apices: Partially visualized upper lobe lung parenchyma appears clear. Soft tissues: The visualized pharyngeal soft tissues are normal in appearance noting angiographic phase technique. The oropharyngeal airway appears widely patent. The salivary and thyroid glands are normal in appearance. No cervical lymphadenopathy is seen. Skeletal structures: The visualized calvarium at the skull base appears intact. The imaged cervical spine is maintains noting mild spondylosis. Sinuses and mastoids: There is moderate mucosal thickening within the diminutive right maxillary antrum. The remaining visualized paranasal sinuses are clear. The mastoid air cells are well pneumatized. IMPRESSION: 1. 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 2. There is high-grade stenosis with near complete focal occlusion within the petrous portion of the left internal carotid artery. 3. The right carotid system and the vertebral arteries are widely patent bilaterally. ACT 112: Negative or not required by law. Electronically signed by: Will Fry M.D. 09/10/2022 12:38 PM Supervising Physician Co-Signing Physician Notes Patient was seen and examined independently. Chart reviewed. Case discussed with SERGE. Agree with assessment and plan as outlined above. Keep SBP 140-160 per neurosurgery recommendations. Accepted for transfer to [facility] pending bed availability.
[2022-09-10] MEDS: LABETALOL HCL IV 5 MG/ML 20ML IV PRN ×6 (16:45→21:48)
[2022-09-10 17:17] LABS: Partial Thromboplastin Ratio 1.2
[2022-09-10] MEDS ORDERED: ONDANSETRON INJ 2 MG/ML 2 ML VIAL IV PRN (17:33)
[2022-09-10] MEDS ORDERED: POLYETHYLENE (MIRALAX) 17 GM PACK PO PRN (17:33)
[2022-09-11 00:18] LABS: Partial Thromboplastin Ratio 1.6
[2022-09-11 06:39] LABS: Hemoglobin 15.4 g/dl (14.0-18.0); Mean Corpuscular Hemoglobin 33.9 pg (25.0-34.0); Mean Corpuscular Hgb Conc 36.7 g/dL (32.0-36.0); Mean Corpuscular Volume 92.5 fL (80.0-100.0); Mean Platelet Volume 10.4 fL (9.4-12.4); Platelet Count 210 K/uL (130-400); RDW Standard Deviation 37.5 fL (36.4-46.3); Red Blood Count 4.54 M/uL (4.70-6.10); White Blood Count 6.12 K/ul (4.8-10.8)
[2022-09-11 06:40] LABS: BUN Creatinine Ratio 11.5 (10-20); Calcium 9.2 mg/dl (8.5-10.1); Creatinine Clr Calc Pharmacy 73.4 ml/min; Est GFR (African American) 85.7 ml/min; Est GFR (Non-African American) 73.9 ml/min; Potassium 3.8 mmol/L (3.5-5.1)
[2022-09-11] MEDS: LABETALOL HCL IV 5 MG/ML 20ML IV PRN ×4 (07:07→15:21)
[2022-09-11 07:28] LABS: Partial Thromboplastin Ratio 1.7; Partial Thromboplastin Time 46.7 Seconds (21.0-31.0)
[2022-09-11] MEDS ORDERED: ACETAMINOPHEN 325 MG TAB PO PRN (08:52)
[2022-09-11] MEDS ORDERED: lisinopril 40 MG TAB PO SCH (09:00)
[2022-09-11] MEDS ORDERED: amLODIPine BESYLATE 5 MG TAB PO SCH (09:00)
[2022-09-11] MEDS ORDERED: METOPROLOL SUCC 50MG EXT REL TAB PO SCH (09:00)
[2022-09-11] MEDS ORDERED: hydroCHLOROthiazide 25 MG TAB PO SCH (09:00)
[2022-09-11] MEDS ORDERED: ASPIRIN 81 MG ECTAB PO SCH (10:45)
[2022-09-11] MEDS ORDERED: CLOPIDOGREL BISULFATE 75 MG TAB PO SCH (10:45)
--- NOTE | 2022-09-11 16:33 | Discharge Summary ---
Date of Service September 11, 2022 Admission HPI Per Admitting Provider This is a 67-year-old male with PMH of persistent atrial fibrillation on Eliquis, hypertension and other medical problems listed below who presents with persistent headache x 4 days. Does not typically get headaches like this and states that pain is most present in left back of head with aching pain radiating into left jaw. Denies any lightheadedness, issues with speech or swallowing or numbness to head neck or upper extremities. Took Tylenol at home which relieved pain somewhat for a time, but is always more painful at night. BP has been elevated the past few days at home, reporting a BP of 171/123 and called into cardiology office and was directed to come to ED for further evaluation. Takes blood pressure medication for history of hypertension, which she took all of this morning. Is also on Eliquis for history of atrial fibrillation. Denies personal stroke history. Is a non-smoker. Headache pain is a 1/10 while lying in the ER room. Does routinely follow with a chiropractor and have neck adjust ments but states he has not had 1 for 3 weeks. Denies any fever, chills, lightheadedness, chest pain, palpitations, shortness of breath, nausea, vomiting, abdominal pain, dysuria, diarrhea or constipation. Principal Diagnosis Left internal carotid artery dissection High grade stenosis left internal carotid artery Discharge Exam Appeared well, no acute distress, non toxic Respiratory Breathing comfortably on room air, no wheezing/rhonchi/rales Cardiovascular Regular rate and rhythm, no murmurs/rubs/gallops Gastrointestinal (Abdomen) soft, non tender, non distended Musculoskeletal No edema, no cyanosis or clubbing Neurologic Awake, alert, spontaneously moving extremities, facial symmetry Discharge Data Allergies Allergy/AdvReac Type Severity Reaction Status Date / Time No Known Allergies Allergy Verified 09/10/22 15:17 Consultations 09/10/22 14:34 ED Decision to Admit Stat Ordered Studies 09/10/22 10:37 CT head/brain wo con Stat 09/10/22 11:50 CT angio head w con Stat CT angio neck with con Stat Hospital Course (1) Internal carotid artery dissection: (2) Headache: (3) Persistent atrial fibrillation: (4) HTN (hypertension): Plan Mr Jose Cruz Castillo is a 67-year-old male with PMH of atrial fibrillation on Eliquis, and hypertension who presented to the ER on 09/10 with persistent headache for 4 days and elevated blood pressure at home. Here, he was found to have a left internal carotid artery dissection with high grade stenosis within the petrous portion of the left ICA. His case was discussed by ER provider with Neurology at [facility] and he was accepted for transfer, however a bed was not immediately available so he was admitted here awaiting transfer. At the recommendation of Neurology and Neurosurgery, his Eliquis was held and he was started on a heparin drip, aspirin, and plavix. His systolic blood pressure was recommended to be kept within the range of 140 to 160 to avoid further dissection or provoking a stroke. His blood pressure was very elevated on admission (up to 190/135) despite being on multiple antihypertensives at home (he is on lisinopril 40mg daily, HCTZ 12.5mg daily, metoprolol XL 50mg daily) so amlodipine 5mg daily was also added. His blood pressure was monitored closely and he also received labetalol 2.5mg IV as needed to keep his blood pressure controlled. He remained at [facility] with close monitoring and he was transferred to [facility] the next day once a bed was available. Total Time Total Time Spent Total Time Spent (In Minutes): 60 Discharge Plan Discharge Items Patient Disposition: Transfer Acute Care Hospital Reason For Visit: DISSECTION L ICA AWAITING TRANSFER Discharge Diagnosis: Left internal carotid dissection High grade stenosis left internal carotid artery Hypertensive Urgency Condition on Discharge: Fair Activity: As commented below Non-emergency contact: Primary Care Provider, Surgeon and Neurologist Call non-emergency contact if: you have any medication questions Follow-up/Referrals: Mathieu Baer DO [Primary Care Provider] - Diet: Nothing by Mouth Addtl Attending Provider Instructions: Continue heparin drip Nothing by mouth until evaluated by Neurosurgery Pending Studies at Discharge: No Stand-Alone Forms: My [facility] Skilled Items Patient informed of condition?: Yes DNR: No Discharge Level of Care: Other Communicable Disease: No Discharge Prognosis: Stable Lines: Peripheral IV Urinary Catheter: No Medications and DC Order Prescriptions: New clopidogrel 75 mg Tablet 75 mg PO QAM 30 Days Qty: 30 0RF amlodipine [Norvasc] 5 mg Tablet 5 mg PO QAM 30 Days Qty: 30 0RF labetalol 5 mg/mL Solution 2.5 mg IV Q15M PRN (Reason: hypertension) Qty: 20 0RF Rx Instructions: For SBP > 160. Hold if SBP < 140 acetaminophen 325 mg Tablet 650 mg PO Q4H PRN (Reason: pain) 7 Days Qty: 14 0RF aspirin 81 mg Tablet,Delayed Release (Dr/Ec) 81 mg PO QAM 30 Days Qty: 30 0RF Continued metoprolol succinate 50 mg tablet extended release 24 hr 50 mg PO QAM hydrochlorothiazide 12.5 mg capsule 12.5 mg PO QAM lisinopril 40 mg tablet 40 mg PO QAM Discontinued Eliquis 5 mg tablet 5 mg PO BID Discharge Orders: Discharge Order (Routine); Ordered 09/11/22 Ordered By: Seven Ruff Admission Data Admit Date/Time: 09/10/22 16:27 Attending Provider: Seven Ruff Admit Provider: Seven Ruff Primary Care Provider: Mathieu Baer Other Providers: Seven Ruff Other Interventions: Discharge Summary Assessment (RN) Last Done: 09/11/22 14:31
== END 2022-09-11 15:55 | disposition short-term general hospital (02) | DRG 300 ==
LOC: ED 09:47 → 1E 16:27